=== PATIENT | female | born 1970 | race Caucasian/White ===

== ENCOUNTER → 2019-05-23 | Outpatient (CLI) | payer OTHER ==
--- NOTE | 2019-05-26 10:52 | MM ---
Reason for exam: screening (asymptomatic). Last mammogram was performed 1 year and 1 month ago. Physical Findings: A clinical breast exam by your physician is recommended on an annual basis and results should be correlated with mammographic findings. MG 3D Screening Mammo W/Cad Bilateral CC and MLO view(s) were taken. Prior study comparison: April 11, 2018, bilateral MG screening mammo w CAD. October 15, 2006, bilateral screening mammogram w/CAD. There are scattered fibroglandular densities. No significant changes when compared with prior studies. ASSESSMENT: Benign, BI-RAD 2 RECOMMENDATION: Routine screening mammogram of both breasts in 1 year.
== END | disposition home or self-care (01) ==
LOC: RADMAMWWP 07:47
PROVIDERS: ATTEND Nurse Practitioner Women's Health
DX: Z12.31 Encounter for screening mammogram for malignant neoplasm of breast (principal)
CPT/HCPCS: 77063; 77067

== ENCOUNTER → 2019-07-19 | Outpatient (CLI) | payer OTHER ==
--- NOTE | 2019-07-20 03:51 | XR ---
EXAMINATION TYPE: XR chest 2V DATE OF EXAM: 07/19/2019 COMPARISON: None HISTORY: 48-year-old female with cough, R05 R042 R50 TECHNIQUE: Frontal and lateral views FINDINGS: The heart is normal size. Aorta within normal limits. Large patient body habitus casts hazy densities over the hemithoraces. Mild interstitial prominence. No consolidation or pleural effusion. IMPRESSION: Large patient body habitus and some underpenetration. Interstitial prominence could reflect bronchiti s or asthma. Otherwise, no definite acute process.
== END | disposition home or self-care (01) ==
LOC: RAD 15:54
PROVIDERS: ATTEND Family Medicine
DX: R04.2 Hemoptysis (principal); R50.9 Fever, unspecified
CPT/HCPCS: 71046

== ENCOUNTER → 2020-05-20 | Outpatient (CLI) | payer OTHER | END | disposition home or self-care (01) | LOC: LABWHC1 07:36 | PROVIDERS: ATTEND Nurse Practitioner Women's Health | DX: R00.2 Palpitations (principal) | CPT/HCPCS: 36415; 93005 ==

== ENCOUNTER → 2020-05-27 | Outpatient (CLI) | payer OTHER ==
--- NOTE | 2020-05-27 13:29 | MM ---
Reason for exam: screening (asymptomatic). Last mammogram was performed 1 year ago. Physical Findings: A clinical breast exam by your physician is recommended on an annual basis and results should be correlated with mammographic findings. MG 3D Screening Mammo W/Cad Bilateral CC and MLO view(s) were taken. Prior study comparison: May 23, 2019, bilateral MG 3d screening mammo w/cad. April 11, 2018, bilateral MG screening mammo w CAD. The breast tissue is heterogeneously dense. This may lower the sensitivity of mammography. There is no discrete abnormality. ASSESSMENT: Negative, BI-RAD 1 RECOMMENDATION: Routine screening mammogram of both breasts in 1 year.
== END | disposition home or self-care (01) ==
LOC: RADMAMWWP 08:17
PROVIDERS: ATTEND Family Medicine
DX: Z12.31 Encounter for screening mammogram for malignant neoplasm of breast (principal)
CPT/HCPCS: 77063; 77067

== ENCOUNTER → 2021-05-26 | Outpatient (CLI) | payer OTHER ==
--- NOTE | 2021-05-26 11:00 | ECHOF ---
Referral Reason:R01.1 Heart Murmur MEASUREMENTS -------- HEIGHT: 167.6 cm WEIGHT: 108.9 kg BP: RVIDd: 3.9 cm (< 3.3) IVSd: 1.2 cm (0.6 - 1.1) LVIDd: 4.4 cm (3.9 - 5.3) LVPWd: 1.3 cm (0.6 - 1.1) IVSs: 1.8 cm LVIDs: 3.3 cm LVPWs: 1.9 cm LAESV Index (A-L): 31.27 ml/m Ao Diam: 2.7 cm (2.0 - 3.7) AV Cusp: 1.9 cm (1.5 - 2.6) LA Diam: 4.1 cm (2.7 - 3.8) MV EXCURSION: 17.354 mm (> 18.000) MV EF SLOPE: 65 mm/s (70 - 150) EPSS: 0.6 cm MV E Pradeep: 1.36 m/s MV DecT: 203 ms MV A Pradeep: 0.83 m/s MV E/A Ratio: 1.64 RAP: 5.00 mmHg RVSP: 36.87 mmHg FINDINGS -------- Sinus rhythm. This was a technically adequate study. The left ventricular size is normal. There is mild concentric left ventricular hypertrophy. Overa ll left ventricular systolic function is normal with, an EF between 55 - 60 %. The diastolic fillin g pattern is normal for the age of the patient 21.40. The right ventricle is mildly enlarged. LA is midly dilated 29-33ml/m2. The right atrial size is normal. Interatrial and interventricular septum intact. The aortic valve is trileaflet and appears structurally normal. There is no evidence of aortic regu rgitation. There is no evidence of aortic stenosis. There is trace mitral regurgitation. Mild tricuspid regurgitation present. There is borderline pulmonary hypertension. The right ventr icular systolic pressure, as measured by Doppler, is 36.87mmHg. There is no pulmonic regurgitation present. The aortic root size is normal. IVC Not well visulized. Echo free space indicative of a pericardial fat pad. There is no pericardial effusion. CONCLUSIONS -------- 1. The left ventricular size is normal. 2. There is mild concentric left ventricular hypertrophy. 3. Overall left ventricular systolic function is normal with, an EF between 55 - 60 %. 4. The diastolic filling pattern is normal for the age of the patient 21.40 5. The right ventricle is mildly enlarged. 6. LA is midly dilated 29-33ml/m2. 7. There is trace mitral regurgitation. 8. Mild tricuspid regurgitation present. 9. There is borderline pulmonary hypertension. 10. The right ventricular systolic pressure, as measured by Doppler, is 36.87mmHg. PATCH PRESS OPERATOR: Ashley Fields RDCS
== END | disposition home or self-care (01) ==
LOC: RADECHMAIN 08:28
PROVIDERS: ATTEND Family Medicine
DX: I08.1 Rheumatic disorders of both mitral and tricuspid valves (principal); I27.20 Pulmonary hypertension, unspecified
CPT/HCPCS: 93306

== ENCOUNTER → 2021-08-04 | Outpatient (CLI) | payer OTHER ==
--- NOTE | 2021-08-06 12:35 | MM ---
Reason for exam: screening (asymptomatic). Last mammogram was performed 1 year and 2 months ago. Physical Findings: A clinical breast exam by your physician is recommended on an annual basis and results should be correlated with mammographic findings. MG 3D Screening Mammo W/Cad Bilateral CC and MLO view(s) were taken. Prior study comparison: May 27, 2020, bilateral MG 3d screening mammo w/cad. May 23, 2019, bilateral MG 3d screening mammo w/cad. There are scattered fibroglandular densities. No significant changes when compared with prior studies. ASSESSMENT: Benign, BI-RAD 2 RECOMMENDATION: Routine screening mammogram of both breasts in 1 year.
== END | disposition home or self-care (01) ==
LOC: RADMAMWWP 11:09
PROVIDERS: ATTEND Family Medicine
DX: Z12.31 Encounter for screening mammogram for malignant neoplasm of breast (principal)
CPT/HCPCS: 77063; 77067

== ENCOUNTER → 2022-09-14 | Outpatient (CLI) | payer OTHER ==
--- NOTE | 2022-09-15 11:16 | MM ---
Reason for Exam: Screening (asymptomatic). Last mammogram was performed 1 year(s) and 1 month(s) ago. Patient History: Menarche at age 13. First Full-Term at age 22. Last menstrual period: 09/11/2022 Risk Values: Ericka 5 year model risk: 0.9%. NCI Lifetime model risk: 7.9%. Prior Study Comparison: 05/23/2019 Bilateral Screening Mammogram, [facility]. 05/27/2020 Bilateral Screening Mammogram, [facility]. 08/04/2021 Bilateral Screening Mammogram, [facility]. Tissue Density: There are scattered fibroglandular densities. Findings: Analyzed By CAD. Pattern appears stable. Some focal asymmetries in the upper outer aspect right breast, stable from comparison. No significant interval change is evident. No suspicious groups of microcalcifications, spiculated or lobular masses, architectural distortion or other secondary signs of malignancy are mammographically apparent. Overall Assessment: Benign, BI-RAD 2 Management: Screening Mammogram of both breasts in 1 year. A negative mammogram report should not preclude additional follow up of suspicious palpable abnormalities. Patient should continue monthly self breast exam. A clinical breast exam by your physician is recommended on an annual basis and results should be correlated with mammographic findings. Electronically signed and approved by: Jose L Noel D.O. Radiologis
== END | disposition home or self-care (01) ==
LOC: RADMAMWWP 15:12
PROVIDERS: ATTEND Family Medicine
DX: Z12.31 Encounter for screening mammogram for malignant neoplasm of breast (principal)
CPT/HCPCS: 77063; 77067

== ENCOUNTER → 2023-09-22 | Outpatient (CLI) | payer OTHER ==
--- NOTE | 2023-09-23 20:08 | MM ---
Reason for Exam: Screening (asymptomatic). Last screening mammogram was performed 12 month(s) ago. Patient History: Menarche at age 13. First Full-Term at age 22. Risk Values: Ericka 5 year model risk: 0.9%. NCI Lifetime model risk: 7.8%. Prior Study Comparison: 05/27/2020 Bilateral Screening Mammogram, [facility]. 08/04/2021 Bilateral Screening Mammogram, [facility]. 09/14/2022 Bilateral MG 3D screening mammo w/cad, [facility]. Tissue Density: There are scattered areas of fibroglandular density. Findings: Analyzed By CAD. Unchanged global asymmetry right upper quadrant. There is no suspicious group of microcalcifications or new suspicious mass in either breast. Overall Assessment: Benign, BI-RAD 2 Management: Screening Mammogram of both breasts in 1 year. . Patient should continue monthly self-breast exams. A clinical breast exam by your physician is recommended on an annual basis. This exam should not preclude additional follow-up of suspicious palpable abnormalities. Note on Ericka scores and lifetime risk: 1. A Ericka score greater than 3% is considered moderate risk. If this is the case, consider specialist referral to assess eligibility for a risk reducing agent. 2. If overall lifetime risk for the development of breast cancer is 20% or higher, the patient may qualify for future screening with alternating mammogram and breast MRI. Electronically signed and approved by: Jose Lynch M.D. Radiologist
== END | disposition home or self-care (01) ==
LOC: RADMAMWWP 07:23
PROVIDERS: ATTEND Family Medicine
DX: Z12.31 Encounter for screening mammogram for malignant neoplasm of breast (principal)
CPT/HCPCS: 77063; 77067

== ENCOUNTER 2024-08-23 20:22 | Observation (INO) | payer OTHER ==
[2024-08-23 21:58] LABS: Anisocytosis Slight; Basophils % (A) 0 %; Eosinophils # (A) 0.4 k/uL (0-0.7); Eosinophils % (A) 2 %; HCT 35.9 % (34.0-46.0); HGB 11.6 gm/dL (11.4-16.0); Lymphocytes # (A) 3.3 k/uL (1.0-4.8); Lymphocytes % (A) 19 %; MCH 26.6 pg (25.0-35.0); MCHC 32.4 g/dL (31.0-37.0); MCV 82.1 fL (80.0-100.0); Mean Platelet Volume 7.6; Monocytes # (A) 0.6 k/uL (0-1.0); Monocytes % (A) 3 %; Neutrophils # (A) 13.1 k/uL (1.3-7.7); Neutrophils % (A) 75 %; Platelet Count 251 k/uL (150-450); RBC 4.37 m/uL (3.80-5.40); RDW 16.3 % (11.5-15.5); WBC 17.5 k/uL (3.8-10.6)
[2024-08-23 22:02] LABS: Appearance,Urine Clear (Clear); Bilirubin,Urine Negative (Negative); Blood,Urine Negative (Negative); Color,Urine Light Yellow; Glucose,Urine (UA) Negative (Negative); Ketones,Urine Negative (Negative); Leukocyte Esterase,Urine Small (Negative); Mucus,Urine Rare /hpf; Nitrite,Urine Negative (Negative); Protein,Urine Negative (Negative); RBC,Urine <1 /hpf (0-5); Specific Gravity,Urine 1.023 (1.001-1.035); Squamous Epithelial Cell,Urine 2 /hpf (0-4); Urobilinogen,Urine <2.0 mg/dL (<2.0); WBC,Urine 3 /hpf (0-5)
[2024-08-23 22:08] LABS: ALT 14 U/L (4-34); AST 21 U/L (14-36); African American GFR (CKD) >90 (>60 ml/min/1.73 sqM); Alkaline Phosphatase 104 U/L (38-126); Anion Gap 10 mmol/L; Blood Urea Nitrogen 19 mg/dL (7-17); Calcium 8.9 mg/dL (8.4-10.2); Carbon Dioxide 26 mmol/L (22-30); Chloride 101 mmol/L (98-107); Glucose 120 mg/dL (74-99); Non-African American GFR(CKD) >90 (>60 ml/min/1.73 sqM); Potassium 3.5 mmol/L (3.5-5.1); Sodium 137 mmol/L (137-145); Total Bilirubin 0.5 mg/dL (0.2-1.3); Total Protein 6.7 g/dL (6.3-8.2)
[2024-08-23 22:25] LABS: HCG,Quantitative Serum <2.4 mIU/mL
[2024-08-23] MEDS: SODIUM CHLORIDE 0.9% 1,000 ML IV ONE (22:30)
[2024-08-23] MEDS: HYDROmorphone 1 MG/ML 1 ML SYRINGE IVP STA (22:32)
--- NOTE | 2024-08-23 23:09 | CT ---
EXAMINATION TYPE: CT abdomen pelvis w con DATE OF EXAM: 08/23/2024 COMPARISON: NONE CLINICAL INDICATION: Female, 54 years old with history of abdominal pain, Pt arrives in today for right groin pain. Pt denies any other complaints. no urinary complaints, no hx of hernia., TECHNIQUE: CT scan of the abdomen and pelvis is performed with IV Contrast, patient injected with 100ml mL of Is ovue 300., (none if empty) Oral contrast used: without Oral Contrast (none if empty) CT DLP: 1889.9 mGycm, Automated exposure control for dose reduction was used. FINDINGS: LUNG BASES: Dependent opacity favors atelectasis. LIVER/GB: Liver is heterogeneously hypodense consistent with diffuse fatty infiltrative hepatocellula r disease. PANCREAS: No significant abnormality is seen. SPLEEN: No significant abnormality is seen. ADRENALS: No significant abnormality is seen. KIDNEYS: No significant abnormality is seen. BOWEL: Normal gas-filled appendix from cecum. Low-lying cecum into the right anterior pelvis. No abno rmal small or large bowel dilatation. A few scattered colonic diverticula. No CT evidence for acute d iverticulitis. UTERUS/ADNEXA: Anteverted uterus. LYMPH NODES: No greater than 1cm abdominal or pelvic lymph nodes are appreciated. OSSEOUS STRUCTURES: Mild to moderate narrowing and spurring of both hip joints. OTHER: No groin hernia or adenopathy is seen.. IMPRESSION: No significant acute finding is seen to account for patient's clinical symptoms. [facility], , 08/23/2024 11:06 PM
--- NOTE | 2024-08-24 01:38 | US ---
EXAM: US Pelvis Transvaginal CLINICAL HISTORY: ITS.REASON US Reason: RLQ pain TECHNIQUE: Real-time transvaginal pelvic ultrasound with image documentation. Transvaginal imaging was used for better evaluation of the endometrium and adnexa. COMPARISON: No relevant prior studies available. FINDINGS: Uterus/cervix: Unremarkable. Normal endometrial stripe thickness. No myometrial mass. Right ovary: Not seen secondary to overlying bowel gas Left ovary: Not seen secondary to overlying bowel gas Free fluid: No free fluid. Bladder: Empty bladder which cannot be evaluated with this probe. IMPRESSION: Normal pelvic ultrasound. Ovaries are not seen on this exam secondary overlying bowel gas.
[2024-08-24] MEDS ORDERED: MORPHINE SULFATE 4 MG/ML SYRINGE IVP PRN (02:55)
--- NOTE | 2024-08-24 02:59 | ED ---
Abdominal Pain HPI - General Source: patient Mode of arrival: ambulatory Limitations: no limitations <Carloz Omalley - Last Filed: 08/25/24 04:14> <Faheem Nunez - Last Filed: 08/25/24 21:36> - General Chief Complaint: Abdominal Pain Stated Complaint: Abdominal Pain Time Seen by Provider: 08/23/24 21:07 - History of Present Illness Initial Comments: 54-year-old female presenting with chief complaint of abdominal pain. Patient started experiencing right lower quadrant pain this afternoon. States that the pain is a persistent aching but with any movement becomes a very sharp pain. No history of abdominal surgeries. No nausea or vomiting. No diarrhea. No urinary symptoms. No fever or chills. No injuries. No hip pain. No vaginal bleeding. (Carloz Omalley) - Related Data Home Medications Medication Instructions Recorded Confirmed Atorvastatin [Lipitor] 40 mg PO DAILY 08/24/24 08/24/24 Escitalopram [Lexapro] 10 mg PO DAILY 08/24/24 08/24/24 Fexofenadine HCl [Tahmina Allergy] 180 mg PO DAILY 08/24/24 08/24/24 Fish Oil/Dha/Epa [Fish Oil 1,200 1 cap PO DAILY 08/24/24 08/24/24 mg Fish Oil] Losartan-Hctz 50-12.5 mg [Hyzaar 1 tab PO DAILY 08/24/24 08/24/24 50-12.5] Multivitamins, Thera [Multivitamin 1 tab PO DAILY 08/24/24 08/24/24 (formulary)] metFORMIN HCL [Glucophage] 500 mg PO DAILY 08/24/24 08/24/24 Allergies Allergy/AdvReac Type Severity Reaction Status Date / Time amoxicillin Allergy Severe Abdominal Verified 08/24/24 09:54 Pain, DIARRHEA, N &V, YEAST INFECTION. lisinopril Allergy Unknown Verified 08/24/24 09:54 Review of Systems ROS Other: All systems not noted in ROS Statement are negative. <Carloz Omalley - Last Filed: 08/25/24 04:14> ROS Other: All systems not noted in ROS Statement are negative. <Faheem Nunez - Last Filed: 08/25/24 21:36> ROS Statement: Those systems with pertinent positive or pertinent negative responses have been documented in the HPI. Past Medical History Past Medical History: GERD/Reflux, Hypertension Additional Past Medical History / Comment(s): HEART MURMUR, HX OF MENINGITIS (VIRAL & BACTERIAL), IBS, DIARRHEA, PAIN RT LOWER SIDE. History of Any Multi-Drug Resistant Organisms: None Reported Additional Past Surgical History / Comment(s): RT FOREARM FX REPAIR AND THEN HARDWARE REMOVED. LEFT ANKLE HAS PLATE AND SCREWS. Past Anesthesia/Blood Transfusion Reactions: Motion Sickness, Postoperative Nausea & Vomiting (PONV) Past Psychological History: Anxiety Smoking Status: Never smoker Past Alcohol Use History: Rare Past Drug Use History: None Reported - Past Family History Mother Family Medical History: No Reported History <Carloz Omalley - Last Filed: 08/25/24 04:14> General Exam Limitations: no limitations General appearance: alert, in no apparent distress Head exam: Present: atraumatic, normocephalic, normal inspection Eye exam: Present: normal appearance, EOMI Neck exam: Present: normal inspection. Absent: meningismus Respiratory exam: Present: normal lung sounds bilaterally. Absent: respiratory distress, wheezes, rales, rhonchi, stridor Cardiovascular Exam: Present: regular rate, normal rhythm, normal heart sounds. Absent: systolic murmur, diastolic murmur, rubs, gallop, clicks GI/Abdominal exam: Present: soft, tenderness, guarding. Absent: distended, rebound, rigid Neurological exam: Present: alert, oriented X3 Psychiatric exam: Present: normal affect, normal mood Skin exam: Present: warm, dry, normal color <Craloz Omalley - Last Filed: 08/25/24 04:14> Course Vital Signs 08/23/24 08/24/24 08/24/24 20:30 01:33 06:03 Temperature 97.8 F 98.2 F 97.7 F Pulse Rate 92 75 72 Respiratory 20 18 19 Rate Blood Pressure 182/100 124/76 112/75 O2 Sat by Pulse 98 98 96 Oximetry 08/24/24 11:11 Temperature 98.0 F Pulse Rate 70 Respiratory 20 Rate Blood Pressure 115/80 O2 Sat by Pulse 98 Oximetry Medical Decision Making - Lab Data Result diagrams: 08/24/24 10:53 08/24/24 10:53 <Carloz Omalley - Last Filed: 08/25/24 04:14> - Lab Data Result diagrams: 08/25/24 06:00 08/25/24 11:06 <Faheem Nunez - Last Filed: 08/25/24 21:36> - Medical Decision Making Was pt. sent in by a medical professional or institution (NESTOR [place], CREATIVE ENGAGEMENT DIRECTOR, urgent care, hospital, or penitentiary...) When possible be specific @ -[No] Did you speak to anyone other than the patient for history (EMS, parent, family, police, friend...)? What history was obtained from this source @ -[No] Did you review nursing and triage notes (agree or disagree)? Why? @ -[I reviewed and agree with nursing and triage notes] Were old charts reviewed (outside hosp., previous admission, EMS record, old EKG, old radiological studies, urgent care reports/EKG's, penitentiary records)? Report findings @ -[No old charts were reviewed] Differential Diagnosis (chest pain, altered mental status, abdominal pain women, abdominal pain men, vaginal bleeding, weakness, fever, dyspnea, syncope, headache, dizziness, GI bleed, back pain, seizure, CVA, palpatations, mental health, musculoskeletal)? @ -MDM Differential Abdominal Pain Women: Appendicitis, Cholecystitis, diverticulosis, ischemic bowel, pancreatitis, hepatitis, UTI, gastroenteritis, AAA, incarcerated hernia, bowel obstruction, constipation, inflammatory bowel, hepatitis, peptic ulcer disease, splenic infarction, perforated viscus, vulvitis, ovarian torsion, PID, kidney stone, placenta abruption... This is not meant to be an all-inclusive list EKG interpreted by me (3pts min.). @ -[As above] X-rays interpreted by me (1pt min.). @ -[None done] CT interpreted by me (1pt min.). @ -CT shows no acute abdominal process to account for the patient's symptoms U/S interpreted by me (1pt. min.). @ -Normal pelvic ultrasound What testing was considered but not performed or refused? (CT, X-rays, U/S, labs)? Why? @ -[None] What meds were considered but not given or refused? Why? @ -[None] Did you discuss the management of the patient with other professionals (professionals i.e. , NESTOR, CREATIVE ENGAGEMENT DIRECTOR, lab, RT, psych nurse, social service assistant, cake cutter machine, teacher, police or patrol park officer, case picker)? Give summary @ -[No] Was smoking cessation discussed for >3mins.? @ -[No] Was critical care preformed (if so, how long)? @ -[No] Were there social determinants of health that impacted care today? How? (Homele ssness, low income, unemployed, alcoholism, drug addiction, transportation, low edu. Level, literacy, decrease access to med. care, halfway, rehab)? @ -[No] Was there de-escalation of care discussed even if they declined (Discuss DNR or withdrawal of care, Hospice)? DNR status @ -[No] What co-morbidities impacted this encounter? (DM, HTN, Smoking, COPD, CAD, Cancer, CVA, ARF, Chemo, Hep., AIDS, mental health diagnosis, sleep apnea, morbid obesity)? @ -[None] Was patient admitted / discharged? Hospital course, mention meds given and route, prescriptions, significant lab abnormalities, going to OR and other pertinent info. @ -54-year-old female presenting with chief complaint of right lower quadrant pain that started today. Constant pain with sharp pain with movement. History and physical examination are conducted. There is McBurney's point tenderness and guarding. Elevated white count of 17.5. CT negative for appendicitis. After pain medication patient is still experiencing a significant mount of pain. Ultrasound is unremarkable. On reassessment patient is again still experie ncing quite severe pain. There is concern for possible early appendicitis. My attending will discuss this patient with general surgeon on-call, patient signed out to my attending Dr. Nunez Undiagnosed new problem with uncertain prognosis? @ -[No] Drug Therapy requiring intensive monitoring for toxicity (Heparin, Nitro, Insulin, Cardizem)? @ -[No] Were any procedures done? @ -[No] Diagnosis/symptom? @ -[default] Acute, or Chronic, or Acute on Chronic? @ -[default] Uncomplicated (without systemic symptoms) or Complicated (systemic symptoms)? @ -[default] Side effects of treatment? @ -[No] Exacerbation, Progression, or Severe Exacerbation? @ -[No] Poses a threat to life or bodily function? How? (Chest pain, USA, OR, pneumonia, PE, COPD, DKA, ARF, appy, cholecystitis, CVA, Diverticulitis, Homicidal, Suicidal, threat to staff... and all critical care pts) @ -[No] (Carloz Omalley) - Lab Data Lab Results 08/23/24 08/23/24 08/23/24 Range/Units 21:52 21:52 21:52 WBC 17.5 H (3.8-10.6) k/uL RBC 4.37 (3.80-5.40) m/uL Hgb 11.6 (11.4-16.0) gm/dL Hct 35.9 (34.0-46.0) % MCV 82.1 (80.0-100.0) fL MCH 26.6 (25.0-35.0) pg MCHC 32.4 (31.0-37.0) g/dL RDW 16.3 H (11.5-15.5) % Plt Count 251 (150-450) k/uL MPV 7.6 Neutrophils % 75 % Lymphocytes % 19 % Monocytes % 3 % Eosinophils % 2 % Basophils % 0 % Neutrophils # 13.1 H (1.3-7.7) k/uL Lymphocytes # 3.3 (1.0-4.8) k/uL Monocytes # 0.6 (0-1.0) k/uL Eosinophils # 0.4 (0-0.7) k/uL Basophils # 0.0 (0-0.2) k/uL Anisocytosis Slight Sodium 137 (137-145) mmol/L Potassium 3.5 (3.5-5.1) mmol/L Chloride 101 (98-107) mmol/L Carbon Dioxide 26 (22-30) mmol/L Anion Gap 10 mmol/L BUN 19 H (7-17) mg/dL Creatinine 0.55 (0.52-1.04) mg/dL Est GFR (CKD-EPI)AfAm >90 (>60 ml/min/1.73 sqM) Est GFR (CKD-EPI)NonAf >90 (>60 ml/min/1.73 sqM) Glucose 120 H (74-99) mg/dL Plasma Lactic Acid Say (0.7-2.0) mmol/L Calcium 8.9 (8.4-10.2) mg/dL Total Bilirubin 0.5 (0.2-1.3) mg/dL AST 21 (14-36) U/L ALT 14 (4-34) U/L Alkaline Phosphatase 104 (38-126) U/L Total Protein 6.7 (6.3-8.2) g/dL Albumin 4.0 (3.5-5.0) g/dL HCG, Quant <2.4 mIU/mL Urine Color Light Yellow Urine Appearance Clear (Clear) Urine pH 5.0 (5.0-8.0) Ur Specific [place] 1.023 (1.001-1.035) Urine Protein Negative (Negative) Urine Glucose (UA) Negative (Negative) Urine Ketones Negative (Negative) Urine Blood Negative (Negative) Urine Nitrite Negative (Negative) Urine Bilirubin Negative (Negative) Urine Urobilinogen <2.0 (<2.0) mg/dL Ur Leukocyte Esterase Small H (Negative) Urine RBC <1 (0-5) /hpf Urine WBC 3 (0-5) /hpf Ur Squamous Epith Cells 2 (0-4) /hpf Urine Mucus Rare H (None) /hpf 08/23/24 Range/Units 21:52 WBC (3.8-10.6) k/uL RBC (3.80-5.40) m/uL Hgb (11.4-16.0) gm/dL Hct (34.0-46.0) % MCV (80.0-100.0) fL MCH (25.0-35.0) pg MCHC (31.0-37.0) g/dL RDW (11.5-15.5) % Plt Count (150-450) k/uL MPV Neutrophils % % Lymphocytes % % Monocytes % % Eosinophils % % Basophils % % Neutrophils # (1.3-7.7) k/uL Lymphocytes # (1.0-4.8) k/uL Monocytes # (0-1.0) k/uL Eosinophils # (0-0.7) k/uL Basophils # (0-0.2) k/uL Anisocytosis Sodium (137-145) mmol/L Potassium (3.5-5.1) mmol/L Chloride (98-107) mmol/L Carbon Dioxide (22-30) mmol/L Anion Gap mmol/L BUN (7-17) mg/dL Creatinine (0.52-1.04) mg/dL Est GFR (CKD-EPI)AfAm (>60 ml/min/1.73 sqM) Est GFR (CKD-EPI)NonAf (>60 ml/min/1.73 sqM) Glucose (74-99) mg/dL Plasma Lactic Acid Say 1.7 (0.7-2.0) mmol/L Calcium (8.4-10.2) mg/dL Total Bilirubin (0.2-1.3) mg/dL AST (14-36) U/L ALT (4-34) U/L Alkaline Phosphatase (38-126) U/L Total Protein (6.3-8.2) g/dL Albumin (3.5-5.0) g/dL HCG, Quant mIU/mL Urine Color Urine Appearance (Clear) Urine pH (5.0-8.0) Ur Specific [place] (1.001-1.035) Urine Protein (Negative) Urine Glucose (UA) (Negative) Urine Ketones (Negative) Urine Blood (Negative) Urine Nitrite (Negative) Urine Bilirubin (Negative) Urine Urobilinogen (<2.0) mg/dL Ur Leukocyte Esterase (Negative) Urine RBC (0-5) /hpf Urine WBC (0-5) /hpf Ur Squamous Epith Cells (0-4) /hpf Urine Mucus (None) /hpf Disposition <Carloz Omalley - Last Filed: 08/25/24 04:14> <Faheem Nunez - Last Filed: 08/25/24 21:36> Clinical Impression: Abdominal pain Disposition: ADMITTED IP TO THIS HOSP Condition: Stable
[2024-08-24] MEDS: KETOROLAC 15 MG/ML 1 ML VIAL IVP PRN (03:42)
[2024-08-24] MEDS: metroNIDAZOLE-NS PMX 500 MG in SALINE 1 100ML.BAG IVPB STA (04:29)
[2024-08-24] MEDS ORDERED: NALOXONE 0.4 MG/ML 1 ML VIAL IV PRN (06:34)
[2024-08-24] MEDS: SODIUM CHLORIDE 0.9% 1,000 ML IV SCH (06:57)
[2024-08-24] MEDS ORDERED: DEXTROSE 50% SYRINGE 50 ML IVP PRN ×2 (10:07)
[2024-08-24] MEDS: PANTOPRAZOLE 40 MG/10 ML VIAL IVP SCH (10:10)
--- NOTE | 2024-08-24 11:03 | P.HPIM ---
History of Present Illness H&P Date: 08/24/24 Chief Complaint: Right lower quadrant abdominal pain, abrupt onset This is a 54-year-old female with past medical history significant for IBS ,morbid obesity, hypertension, gastroesophageal reflux disease, anxiety with no history of prior abdominal surgeries, presented to the ER with complaints of persistent right lower quadrant abdominal pain, abruptly started yesterday in the store.reports she felt as if she had been "punched" .Further discloses that minimal exertion or flexion intensifies the pain to a sharp sensation. Denied lifting anything heavy. denies new exertional activity, no hiking or working out. denies nausea vomiting or diarrhea. Denies change in bowel or urinary function. Denies urinary frequency, dysuria or flank pain. denies injury or trauma. Denies vaginal bleeding. Denies history of hernia. denies chest pain, palpitations or shortness of breath. Afebrile, WBC 17.5. Possible McBurney's point tenderness present, noted during physical exam .on admission. uncontrolled hypertension with blood pressure 182/100, heart rate 92 respiratory rate 20, O2 sat 98% on room air. Hemoglobin 11.6, platelets 251. Sodium 137, potassium 3.5, bicarb 26, BUN 19, creatinine 0.55, glucose 120, lactic acid 1.7. T. bili/LFTs within normal limits. UA negative. Abdomen/pelvis CT reported liver heterogeneously hypodense consistent with diffuse fatty infiltrative hepatocellular disease, no significant abnormality seen in pancreas, spleen, adrenals or kidneys, low-lying cecum into the right anterior pelvis, no abdominal small or large bowel dilation, a few scattered colonic diverticula with no evidence for acute diverticulitis, anteverted uterus, no greater than 1 cm abdominal or pelvic lymph nodes appreciated, mild to moderate narrowing and spurring of both hip joints; no significant acute finding to account for patient's clinical symptoms. Transvaginal ultrasound reported normal pelvic ultrasound. Received IV fluid hydration, IV Flagyl and ceftriaxone, morphine, Toradol in the ER. Repeat labs pending for this morning. General surgical consult in place. Review of Systems ROS Statement: Those systems with pertinent positive or pertinent negative responses have been documented in the HPI. ROS Other: All systems not noted in ROS Statement are negative. Past Medical History Past Medical History: GERD/Reflux, Hypertension Additional Past Medical History / Comment(s): HEART MURMUR, HX OF MENINGITIS (VIRAL & BACTERIAL), IBS, DIARRHEA, PAIN RT LOWER SIDE. History of Any Multi-Drug Resistant Organisms: None Reported Additional Past Surgical History / Comment(s): RT FOREARM FX REPAIR AND THEN HARDWARE REMOVED. LEFT ANKLE HAS PLATE AND SCREWS. Past Anesthesia/Blood Transfusion Reactions: Motion Sickness, Postoperative Nausea & Vomiting (PONV) Past Psychological History: Anxiety Smoking Status: Never smoker Past Alcohol Use History: Rare Past Drug Use History: None Reported - Past Family History Mother Family Medical History: No Reported History Medications and Allergies Home Medications Medication Instructions Recorded Confirmed Type Atorvastatin [Lipitor] 40 mg PO DAILY 08/24/24 08/24/24 History Escitalopram [Lexapro] 10 mg PO DAILY 08/24/24 08/24/24 History Fexofenadine HCl [Tahmina Allergy] 180 mg PO DAILY 08/24/24 08/24/24 History Fish Oil/Dha/Epa [Fish Oil 1,200 1 cap PO DAILY 08/24/24 08/24/24 History mg Fish Oil] Losartan-Hctz 50-12.5 mg [Hyzaar 1 tab PO DAILY 08/24/24 08/24/24 History 50-12.5] Multivitamins, Thera [Multivitamin 1 tab PO DAILY 08/24/24 08/24/24 History (formulary)] metFORMIN HCL [Glucophage] 500 mg PO DAILY 08/24/24 08/24/24 History Allergies Allergy/AdvReac Type Severity Reaction Status Date / Time amoxicillin Allergy Severe Abdominal Verified 08/24/24 09:54 Pain, DIARRHEA, N &V, YEAST INFECTION. lisinopril Allergy Unknown Verified 08/24/24 09:54 Physical Exam Vitals: Vital Signs Temp Pulse Resp BP Pulse Ox 08/24/24 06:03 97.7 F 72 19 112/75 96 08/24/24 01:33 98.2 F 75 18 124/76 98 08/23/24 20:30 97.8 F 92 20 182/100 98 Intake and Output 08/23/24 08/24/24 08/24/24 22:59 06:59 14:59 Other: Weight 109.316 kg PHYSICAL EXAM: VITAL SIGNS: [Reviewed] GENERAL: Pleasant , morbidly obese female, alert and oriented x 3, no acute distress HEENT: Normocephalic, atraumatic,conjunctivae normal. eyes normal. No sclera icterus NECK: Supple no JVD. No thyroid enlargement. No LNs CARDIOVASCULAR: S1, S2 regular. No murmur. RESPIRATION: Unlabored, equal air entry , clear to auscultation with bilateral bases diminished. ABDOMEN: Soft, obese, right lower quadrant tenderness-ossible McBurney's point tenderness present. Positive guarding. no masses appreciated. No ascites, No hepatosplenomegaly.Bowel sounds heard. LEGS: No edema. no swelling NERVOUS SYSTEM: Cranial N 2-12 grossly normal. No focal deficits. Strength and sensation grossly intact.. Skin: Warm and dry, no rash. Results CBC & Chem 7: 08/25/24 06:00 08/25/24 06:00 Labs: Abnormal Lab Results - Last 24 Hours (Table) 08/23/24 08/23/24 08/23/24 Range/Units 21:52 21:52 21:52 WBC 17.5 H (3.8-10.6) k/uL RDW 16.3 H (11.5-15.5) % Neutrophils # 13.1 H (1.3-7.7) k/uL BUN 19 H (7-17) mg/dL Glucose 120 H (74-99) mg/dL Ur Leukocyte Esterase Small H (Negative) Urine Mucus Rare H (None) /hpf Assessment and Plan Assessment: Right lower quadrant abdominal pain, abrupt onset with elevated white count ,possible McBurney's point tenderness present-possible early appendicitis, imaging reporting negative, surgical evaluation pending. Leukocytosis Hypertension, uncontrolled on admission, currently controlled Gastroesophageal reflux disease IBS Anxiety Morbid obesity, BMI 40 Diabetes mellitus II, hemoglobin A1c 6 Plan: Continue on current medication regimen ,monitoring and symptomatic treat ment. Home medication list being obtained. pain management. NPO, General surgery evaluation/recommendations pending. The impression and plan of care has been dictated as directed. : I performed a history and examination of this patient, discussed the same with the dictator. I agree with the dictator's note ,documented as a scribe. Any additional findings or plans will be noted.
[2024-08-24] MEDS ORDERED: HYDROmorphone 0.5 MG/0.5 ML SYRINGE IVP PRN (11:17)
[2024-08-24 11:47] LABS: Anisocytosis Slight; Hypochromasia Slight; MCH 26.3 pg (25.0-35.0); MCHC 30.7 g/dL (31.0-37.0); MCV 85.7 fL (80.0-100.0); Mean Platelet Volume 7.7; Platelet Count 215 k/uL (150-450); RDW 16.6 % (11.5-15.5); WBC 8.9 k/uL (3.8-10.6)
[2024-08-24 11:52] LABS: African American GFR (CKD) >90 (>60 ml/min/1.73 sqM); Anion Gap 7 mmol/L; Blood Urea Nitrogen 16 mg/dL (7-17); Calcium 8.8 mg/dL (8.4-10.2); Carbon Dioxide 27 mmol/L (22-30); Chloride 103 mmol/L (98-107); Glucose 88 mg/dL (74-99); Magnesium 1.8 mg/dL (1.6-2.3); Non-African American GFR(CKD) >90 (>60 ml/min/1.73 sqM); Potassium 3.8 mmol/L (3.5-5.1); Sodium 137 mmol/L (137-145)
[2024-08-24 12:24] LABS: Glucose,Whole Blood 106 mg/dL (70-110)
[2024-08-24] MEDS: LOSARTAN 50 MG TAB PO SCH (12:27)
[2024-08-24] MEDS: INSULIN LISPRO (HumaLOG) 100 UNIT/ML 10 mL VL SQ SCH (12:31)
[2024-08-24 16:21] LABS: Glucose,Whole Blood 108 mg/dL (70-110)
--- NOTE | 2024-08-24 17:23 | P.GSCN ---
History of Present Illness Consult date: 08/24/24 History of present illness: CHIEF COMPLAINT: Right lower quadrant abdominal pain HISTORY OF PRESENT ILLNESS: The patient is a 54-year-old female who reports developing acute onset right lower quadrant abdominal pain. She denies pain along the groin or pulled muscle or hernia. No prior episode. Patient reports since admission pain is still present. Patient also reports being given antibiotics in the emergency room. Afebrile. She does confirm having a prodromal viral infection for pneumonia for almost 2 months from May to early July. General surgery is consulted due to intractable right lower quadrant abdominal pain. Patient reports having a bowel movement without blood. She reports no improvement or worsening abdominal pain with bowel habits. She denies any moderate passes flatus today. She reports moderate hunger today. She reports her last colonoscopy was 5 years ago unremarkable. PAST MEDICAL HISTORY: See list and reviewed PAST SURGICAL HISTORY: See list and reviewed MEDICATIONS: See list and reviewed ALLERGIES: See list and reviewed SOCIAL HISTORY: See list and reviewed FAMILY HISTORY: See list and reviewed REVIEW OF ORGAN SYSTEMS: CONSTITUTIONAL: No fevers or chills. Morbid obese, BMI 40.1. EYES: Denies any trouble with vision. No glasses. HEENT: No difficulties with hearing. No nosebleeds. No difficulty swallowing. RESPIRATORY: Denies pneumonia. Denies any troubles with breathing or dyspnea on exertion. CARDIOVASCULAR: Denies any chest pain, palpitations, or recent heart attacks. Has hypertensive heart disease. GASTROINTESTINAL: Has gastroesophageal reflux disease. Has postop nausea vomiting. History of irritable bowel syndrome. GENITOURINARY: Denies any blood in urine or increased urinary frequency. NEUROLOGICAL: Denies any numbness or tingling along the distal extremities. No seizure disorders or headaches. MUSCULOSKELETAL: Denies any back pain, stiffness or joint arthritis. SKIN: No current skin cancer. No rash. PSYCHIATRIC: Depressive disorder. Has generalized anxiety disorder. ENDOCRINE: Has diabetes type 2. HEME/LYMPHATIC: Denies any lumps and bumps around the neck. No recent deep venous thrombosis. ALLERGY/IMMUNOLOGY: History of meningitis. BREAST: Denies current breast lumps, pain or nipple discharge. PHYSICAL EXAM: VITALS: Reviewed CONSTITUTIONAL: Well developed and in no acute distress. EYES: Conjuctivae without sclera icterus. Extraocular movements grossly in tact. HEAD, EARS, NOSE, THROAT: Moist buccal mucosa. Head is atraumatic, normocephalic. Hears conversational speech. No nasal drainage. NECK: Supple. No JV distention. No thyroidomegaly. RESPIRATORY: Non-labored respirations and equal bilateral excursions. No gross wheezes. CARDIOVASCULAR: Palpable 2+ radial pulses. ABDOMEN: Obese. Localized tenderness right lower quadrant. No diffuse per itonitis. LYMPH: No neck lymphadenopathy. MUSCULOSKELETAL: No clubbing cyanosis or edema SKIN: Warm and well perfused with good skin turgor. NEUROLOGIC: Cranial nerves II through XII grossly intact. No focal or lateralizing signs. PSYCH: Appropriate affect. Alert and oriented to person, place and time. Displays appropriate insight. CLINCAL LABS: Reviewed. WBC down 17.5-8.9. Hemoglobin 11.0, anemia. LFTs within normal limits. Urinalysis negative for blood. IMAGING: Independently reviewed. CT of the abdomen pelvis independent review demonstrates no inflammatory changes of the right lower quadrant. No forms of colitis. This is my independent interpretation. RADIOLOGY: Report reviewed. CT abdomen pelvis demonstrates unremarkable appendix. Transvaginal ultrasound negative. RECORDS: previous old records reviewed with prior colonoscopy 10 years ago unremarkable. ASSESSMENT: 1. Abdominal pain, intractable right lower quadrant 2. Morbid obesity excess calories, BMI 40.1 3. Diabetes type 2 4. Hypertensive heart disease 5. Generalized anxiety disorder 6. Depressive disorder PLAN: 1. Abdominal pain may be a prodromal state where inflamed lymph nodes can give very similar and intractable abdominal pain. At this time, no urgent surgical invention or appendectomy indicated at this time. 2. Recommend anti-inflammatory Toradol 15 mg scheduled for adequate pain control 3. Warm compress 4 times daily for right lower quadrant abdominal pain 4. May start diet. 5. Recommend withholding any further antibiotics ADVANCE DIRECTIVE: CODE STATUS in chart Thank you for this kind consultation. Dictation was produced using spigit dictation software. Please excuse any grammatical, word or spelling errors. Past Medical History Past Medical History: GERD/Reflux, Hypertension Additional Past Medical History / Comment(s): HEART MURMUR, HX OF MENINGITIS (VIRAL & BACTERIAL), IBS, DIARRHEA, PAIN RT LOWER SIDE. History of Any Multi-Drug Resistant Organisms: None Reported Additional Past Surgical History / Comment(s): RT FOREARM FX REPAIR AND THEN HARDWARE REMOVED. LEFT ANKLE HAS PLATE AND SCREWS. Past Anesthesia/Blood Transfusion Reactions: Motion Sickness, Postoperative Nausea & Vomiting (PONV) Past Psychological History: Anxiety Smoking Status: Never smoker Past Alcohol Use History: Rare Past Drug Use History: None Reported - Past Family History Mother Family Medical History: No Reported History Medications and Allergies Home Medications Medication Instructions Recorded Confirmed Type Atorvastatin [Lipitor] 40 mg PO DAILY 08/24/24 08/24/24 History Escitalopram [Lexapro] 10 mg PO DAILY 08/24/24 08/24/24 History Fexofenadine HCl [Tahmina Allergy] 180 mg PO DAILY 08/24/24 08/24/24 History Fish Oil/Dha/Epa [Fish Oil 1,200 1 cap PO DAILY 08/24/24 08/24/24 History mg Fish Oil] Losartan-Hctz 50-12.5 mg [Hyzaar 1 tab PO DAILY 08/24/24 08/24/24 History 50-12.5] Multivitamins, Thera [Multivitamin 1 tab PO DAILY 08/24/24 08/24/24 History (formulary)] metFORMIN HCL [Glucophage] 500 mg PO DAILY 08/24/24 08/24/24 History Allergies Allergy/AdvReac Type Severity Reaction Status Date / Time amoxicillin Allergy Severe Abdominal Verified 08/24/24 09:54 Pain, DIARRHEA, N &V, YEAST INFECTION. lisinopril Allergy Unknown Verified 08/24/24 09:54 Surgical - Exam Vital Signs Temp Pulse Resp BP Pulse Ox 97.8 F 92 20 182/100 98 08/23/24 20:30 08/23/24 20:30 08/23/24 20:30 08/23/24 20:30 08/23/24 20:30 Results - Labs 08/24/24 10:53 08/24/24 10:53 Abnormal Lab Results - Last 24 Hours (Table) 08/23/24 08/23/24 08/23/24 Range/Units 21:52 21:52 21:52 WBC 17.5 H (3.8-10.6) k/uL Hgb (11.4-16.0) gm/dL MCHC (31.0-37.0) g/dL RDW 16.3 H (11.5-15.5) % Neutrophils # 13.1 H (1.3-7.7) k/uL BUN 19 H (7-17) mg/dL Glucose 120 H (74-99) mg/dL Ur Leukocyte Esterase Small H (Negative) Urine Mucus Rare H (None) /hpf 08/24/24 Range/Units 10:53 WBC (3.8-10.6) k/uL Hgb 11.0 L (11.4-16.0) gm/dL MCHC 30.7 L (31.0-37.0) g/dL RDW 16.6 H (11.5-15.5) % Neutrophils # (1.3-7.7) k/uL BUN (7-17) mg/dL Glucose (74-99) mg/dL Ur Leukocyte Esterase (Negative) Urine Mucus (None) /hpf Diabetes panel 08/23/24 08/24/24 Range/Units 21:52 10:53 Sodium 137 137 (137-145) mmol/L Potassium 3.5 3.8 (3.5-5.1) mmol/L Chloride 101 103 (98-107) mmol/L Carbon Dioxide 26 27 (22-30) mmol/L BUN 19 H 16 (7-17) mg/dL Creatinine 0.55 0.57 (0.52-1.04) mg/dL Glucose 120 H 88 (74-99) mg/dL Calcium 8.9 8.8 (8.4-10.2) mg/dL AST 21 (14-36) U/L ALT 14 (4-34) U/L Alkaline Phosphatase 104 (38-126) U/L Total Protein 6.7 (6.3-8.2) g/dL Albumin 4.0 (3.5-5.0) g/dL Calcium panel 08/23/24 08/24/24 Range/Units 21:52 10:53 Calcium 8.9 8.8 (8.4-10.2) mg/dL Albumin 4.0 (3.5-5.0) g/dL Pituitary panel 08/23/24 08/24/24 Range/Units 21:52 10:53 Sodium 137 137 (137-145) mmol/L Potassium 3.5 3.8 (3.5-5.1) mmol/L Chloride 101 103 (98-107) mmol/L Carbon Dioxide 26 27 (22-30) mmol/L BUN 19 H 16 (7-17) mg/dL Creatinine 0.55 0.57 (0.52-1.04) mg/dL Glucose 120 H 88 (74-99) mg/dL Calcium 8.9 8.8 (8.4-10.2) mg/dL Adrenal panel 08/23/24 08/24/24 Range/Units 21:52 10:53 Sodium 137 137 (137-145) mmol/L Potassium 3.5 3.8 (3.5-5.1) mmol/L Chloride 101 103 (98-107) mmol/L Carbon Dioxide 26 27 (22-30) mmol/L BUN 19 H 16 (7-17) mg/dL Creatinine 0.55 0.57 (0.52-1.04) mg/dL Glucose 120 H 88 (74-99) mg/dL Calcium 8.9 8.8 (8.4-10.2) mg/dL Total Bilirubin 0.5 (0.2-1.3) mg/dL AST 21 (14-36) U/L ALT 14 (4-34) U/L Alkaline Phosphatase 104 (38-126) U/L Total Protein 6.7 (6.3-8.2) g/dL Albumin 4.0 (3.5-5.0) g/dL
[2024-08-24] MEDS: KETOROLAC 15 MG/ML 1 ML VIAL IVP SCH (17:53)
[2024-08-24 20:20] VITALS: RESP 17
[2024-08-24 21:07] LABS: Glucose,Whole Blood 120 mg/dL (70-110)
[2024-08-25 01:52] LABS: Glucose,Whole Blood 105 mg/dL (70-110)
[2024-08-25 06:08] LABS: Glucose,Whole Blood 103 mg/dL (70-110)
[2024-08-25 07:04] VITALS: BP 151/84; PULSE 72; TEMP 98
[2024-08-25 08:18] LABS: BUN/Creat Ratio 14.17 Ratio (12.00-20.00); Blood Urea Nitrogen 8.5 mg/dL (9.0-27.0); Calcium 8.3 mg/dL (8.7-10.3); Carbon Dioxide 26.3 mmol/L (21.6-31.8); Chloride 115 mmol/L (96-109); Glucose 101 mg/dL (70-110); Potassium 3.9 mmol/L (3.5-5.5); Sodium 151 mmol/L (135-145)
[2024-08-25 08:27] LABS: Basophils # (A) 0.04 X 10*3/uL (0.00-0.10); Basophils % (A) 0.5 %; Eosinophils # (A) 0.17 X 10*3/uL (0.04-0.35); HCT 34.6 % (37.2-46.3); HGB 10.7 g/dL (12.0-15.0); Lymphocytes # (A) 2.19 X 10*3/uL (0.90-5.00); Lymphocytes % (A) 25.7 %; MCHC 30.9 g/dL (32.0-37.0); MCV 87.2 FL (80.0-97.0); Mean Platelet Volume 10.1 FL (9.5-12.2); Monocytes # (A) 0.42 X 10*3/uL (0.20-1.00); Monocytes % (A) 4.9 %; NRBC Per 100 WBC 0 X 10*3/uL (0.00-0.01); Neutrophils # (A) 5.66 X 10*3/uL (1.80-7.70); Neutrophils % (A) 66.5 %; Platelet Count 212 X 10*3/uL (140-440); RBC 3.97 X 10*6/uL (4.10-5.20); RDW 16.1 % (11.5-14.5); WBC 8.51 X 10*3/uL (4.50-10.00)
[2024-08-25] MEDS: ESCITALOPRAM 10 MG TAB PO SCH (09:02)
--- NOTE | 2024-08-25 10:38 | P.DS ---
Providers Date of admission: 08/24/24 02:49 Expected date of discharge: 08/25/24 Attending physician: Brian Deal Consults: 08/24/24 06:44 Consult Physician Routine Consulting Provider: Lissy Palma Consult Reason/Comments: Intractable abdominal pain Do you want consulting provider notified?: Yes Primary care physician: [facility] Course: Final Diagnoses: Right lower quadrant abdominal pain, abrupt onset with elevated white count ,possible McBurney's point tenderness present-possible early appendicitis, imaging reporting negative, surgical evaluation pending. Leukocytosis Hypertension, uncontrolled on admission, currently controlled Gastroesophageal reflux disease IBS Anxiety Morbid obesity, BMI 40 Diabetes mellitus II , hemoglobin A1c 6 Hospital course:Chief Complaint: Right lower quadrant abdominal pain, abrupt onset This is a 54-year-old female with past medical history significant for IBS ,morbid obesity, hypertension, gastroesophageal reflux disease, anxiety with no history of prior abdominal surgeries, presented to the ER with complaints of persistent right lower quadrant abdominal pain, abruptly started yesterday in the store.reports she felt as if she had been "punched" .Further discloses that minimal exertion or flexion intensifies the pain to a sharp sensation. Denied lifting anything heavy. denies new exertional activity, no hiking or working out. denies nausea vomiting or diarrhea. Denies change in bowel or urinary function. Denies urinary frequency, dysuria or flank pain. denies injury or trauma. Denies vaginal bleeding. Denies history of hernia. denies chest pain, palpitations or shortness of breath. Afebrile, WBC 17.5. Possible McBurney's point tenderness present, noted during physical exam .on admission. uncontrolled hypertension with blood pressure 182/100, heart rate 92 respiratory rate 20, O2 sat 98% on room air. Hemoglobin 11.6, platelets 251. Sodium 137, potassium 3.5, bicarb 26, BUN 19, creatinine 0.55, glucose 120, lactic acid 1.7. T. bili/LFTs within normal limits. UA negative. Abdomen/pelvis CT reported liver heterogeneously hypodense consistent with diffuse fatty infiltrative hepatocellular disease, no significant abnormality seen in pancreas, spleen, adrenals or kidneys, low-lying cecum into the right anterior pelvis, no abdominal small or large bowel dilation, a few scattered colonic diverticula with no evidence for acute diverticulitis, anteverted uterus, no greater than 1 cm abdominal or pelvic lymph nodes appreciated, mild to moderate narrowing and spurring of both hip joints; no significant acute finding to account for patient's clinical symptoms. Transvaginal ultrasound reported normal pelvic ultrasound. Received IV fluid h ydration, IV Flagyl and ceftriaxone, morphine, Toradol in the ER. Repeat labs pending for this morning. General surgical consult in place. Evaluated by general surgery with no surgical intervention recommended at this time; recommending anti-inflammatories for pain control along with warm compresses. Diet initiated yesterday, tolerated well with no nausea vomiting or diarrhea. Positive bowel movements. Patient is able to ambulate without pain. Reports minimal pain with deep palpation. Chest pain, palpitations or shortness of breath. Afebrile, normal WBC. Patient will be discharged home today in a stable condition with guarded prognosis pending final DC recommendations and clearance per general surgery. The impression and plan of care has been dictated as directed. : I performed a history and examination of this patient, discussed the same with the dictator. I agree with the dictator's note ,documented as a scribe. Any additional findings or plans will be noted. Patient Condition at Discharge: Stable Plan - Discharge Summary New Discharge Prescriptions: Continue metFORMIN HCL [Glucophage] 500 mg PO DAILY Fish Oil/Dha/Epa [Fish Oil 1,200 mg Fish Oil] 1 cap PO DAILY Escitalopram [Lexapro] 10 mg PO DAILY Atorvastatin [Lipitor] 40 mg PO DAILY Multivitamins, Thera [Multivitamin (formulary)] 1 tab PO DAILY Losartan-Hctz 50-12.5 mg [Hyzaar 50-12.5] 1 tab PO DAILY Fexofenadine HCl [Tahmina Allergy] 180 mg PO DAILY Discharge Medication List Atorvastatin [Lipitor] 40 mg PO DAILY 08/24/24 [History] Escitalopram [Lexapro] 10 mg PO DAILY 08/24/24 [History] Fexofenadine HCl [Tahmina Allergy] 180 mg PO DAILY 08/24/24 [History] Fish Oil/Dha/Epa [Fish Oil 1,200 mg Fish Oil] 1 cap PO DAILY 08/24/24 [History] Losartan-Hctz 50-12.5 mg [Hyzaar 50-12.5] 1 tab PO DAILY 08/24/24 [History] Multivitamins, Thera [Multivitamin (formulary)] 1 tab PO DAILY 08/24/24 [History] metFORMIN HCL [Glucophage] 500 mg PO DAILY 08/24/24 [History] Follow up Appointment(s)/Referral(s): Irwin Adams Jr, DO [Primary Care Provider] - 08/31/24 10:45 am
[2024-08-25 11:34] LABS: Glucose,Whole Blood 158 mg/dL (70-110)
[2024-08-25 11:36] LABS: African American GFR (CKD) >90 (>60 ml/min/1.73 sqM); Anion Gap 5 mmol/L; Blood Urea Nitrogen 10 mg/dL (7-17); Calcium 8.6 mg/dL (8.4-10.2); Carbon Dioxide 28 mmol/L (22-30); Chloride 105 mmol/L (98-107); Glucose 151 mg/dL (74-99); Non-African American GFR(CKD) >90 (>60 ml/min/1.73 sqM); Potassium 3.8 mmol/L (3.5-5.1); Sodium 138 mmol/L (137-145)
== END 2024-08-25 11:53 | disposition home or self-care (01) ==
LOC: EC 20:22 → 6NMEDSUR 08-24 02:49 → 4SSUR 08-24 09:38
PROVIDERS: ADMIT Family Medicine; ATTEND Family Medicine
DX: R10.31 Right lower quadrant pain (principal); D72.829 Elevated white blood cell count, unspecified; E11.9 Type 2 diabetes mellitus without complications; I11.9 Hypertensive heart disease without heart failure; K21.9 Gastro-esophageal reflux disease without esophagitis; K57.30 Diverticulosis of large intestine without perforation or abscess without bleeding; K58.9 Irritable bowel syndrome, unspecified; F41.1 Generalized anxiety disorder; N85.4 Malposition of uterus; E66.01 Morbid (severe) obesity due to excess calories; Z68.41 Body mass index [BMI] 40.0-44.9, adult; F32.A Depression, unspecified; Z79.84 Long term (current) use of oral hypoglycemic drugs; Z79.899 Other long term (current) drug therapy; Z88.0 Allergy status to penicillin; Z88.8 Allergy status to other drugs, medicaments and biological substances; Z87.01 Personal history of pneumonia (recurrent)
CPT/HCPCS: 96376 ×2; 96361 ×4; 96365; 96366; 96367; 96375 ×2; 99285; 36415; 80053; 80048 ×2; 83605; 83735; 85025 ×2; 85027; 81001; 84702; 83036; 76830; 74177; G0378 ×3; J0696; J1171; J1885 ×2; Q9967; J1836; J2470 ×2

== ENCOUNTER → 2024-09-22 | Outpatient (CLI) | payer OTHER ==
--- NOTE | 2024-09-25 14:23 | MM ---
Reason for Exam: Screening (asymptomatic). Last screening mammogram was performed 12 month(s) ago. Patient History: Menarche at age 13. First Full-Term at age 22. Risk Values: Ericka 5 year model risk: 1.0%. NCI Lifetime model risk: 7.7%. Prior Study Comparison: 08/04/2021 Bilateral Screening Mammogram, [facility]. 09/14/2022 Bilateral MG 3D screening mammo w/cad, [facility]. 09/22/2023 Bilateral MG 3D screening mammo w/cad, [facility]. Tissue Density: There are scattered areas of fibroglandular density. Findings: Analyzed By CAD. There is no suspicious group of microcalcifications or new suspicious mass in either breast. Overall Assessment: Negative, BI-RAD 1 Management: Screening Mammogram of both breasts in 1 year. . Patient should continue monthly self-breast exams. A clinical breast exam by your physician is recommended on an annual basis. This exam should not preclude additional follow-up of suspicious palpable abnormalities. Note on Ericka scores and lifetime risk: 1. A Ericka score greater than 3% is considered moderate risk. If this is the case, consider specialist referral to assess eligibility for a risk reducing agent. 2. If overall lifetime risk for the development of breast cancer is 20% or higher, the patient may qualify for future screening with alternating mammogram and breast MRI. [facility], , 09/22/2024 7:37 AM. Electronically signed and approved by: Olayinka Goodwin M.D. Radiologis
== END | disposition home or self-care (01) ==
LOC: RADMAMWWP 07:24
PROVIDERS: ATTEND Family Medicine
DX: Z12.31 Encounter for screening mammogram for malignant neoplasm of breast (principal); R92.323 Mammographic fibroglandular density, bilateral breasts
CPT/HCPCS: 77063; 77067